=== PATIENT | female | born 1995 | race Caucasian/White ===

== ENCOUNTER → 2025-01-14 | Outpatient (CLI) | payer OTHER ==
--- NOTE | 2025-01-15 11:07 | CA ---
Transthoracic Echo Report Name: Sanjuanita Meehan Age: 29 Gender: F : 1995 Exam Date: 01/14/2025 14:12 Exam Location: [place] [facility] Ht (in): 61 Wt (lb): 140 Ordering Physician: Vinita Martinez MD Attending/Referring Phys: Teressa Yap [facility] International [employer] Manager Medina Ng RDCS Procedure CPT: Indications: R07.1 CHEST PAIN R00.2 PALPITATIONS Cardiac Hx: Technical Quality: Good Contrast 1: Total Dose (mL): Contrast 2: Total Dose (mL): MEASUREMENTS (Male / Female) Normal Values 2D ECHO LV Diastolic Diameter PLAX 3.9 cm 4.2 - 5.9 / 3.9 - 5.3 cm LV Systolic Diameter PLAX 2.6 cm IVS Diastolic Thickness 0.8 cm 0.6 - 1.0 / 0.6 - 0.9 cm LVPW Diastolic Thickness 1.0 cm 0.6 - 1.0 / 0.6 - 0.9 cm LV Relative Wall Thickness 0.5 LVOT Diameter 2.2 cm LV Diastolic Volume MOD BP 101.6 cm??? 67 - 155 / 56 - 104 cm??? LV Systolic Volume MOD BP 37.5 cm??? 22 - 58 / 19 - 49 cm??? LV Ejection Fraction MOD BP 63.1 % >= 55 % LV Cardiac Index MOD BP 2765.7 cm???/min???m??? LV Diastolic Volume MOD 4C 102.7 cm??? LV Systolic Volume MOD 4C 37.0 cm??? LV Ejection Fraction MOD 4C 64.0 % LV Cardiac Index MOD 4C 2831.1 cm???/min???m??? LV Diastolic Length 4C 8.4 cm LV Systolic Length 4C 6.8 cm LV Diastolic Volume MOD 2C 94.7 cm??? LV Systolic Volume MOD 2C 36.2 cm??? LV Ejection Fraction MOD 2C 61.7 % LV Cardiac Index MOD 2C 2520.1 cm???/min???m??? LV Diastolic Length 2C 7.9 cm LV Systolic Length 2C 6.5 cm LA Volume 37.4 cm??? 18 - 58 / 22 - 52 cm??? LA Volume Index 22.4 cm???/m??? 16 - 28 cm???/m??? DOPPLER AV Peak Velocity 58.7 cm/s AV Peak Gradient 1.4 mmHg AV Mean Velocity 40.5 cm/s AV Mean Gradient 1.5 mmHg AV Velocity Time Integral 11.6 cm LVOT Peak Velocity 91.8 cm/s LVOT Peak Gradient 3.4 mmHg LVOT Velocity Time Integral 18.7 cm LVOT Stroke Volume 70.0 cm??? LVOT Stroke Volume Index 43.1 ml/m??? LVOT Cardiac Index 3016.5 cm???/min???m??? AV Area Cont Eq vti 6.1 cm??? AV Area Cont Eq pk 5.9 cm??? MV Area PHT 2.3 cm??? Mitral E Point Velocity 54.3 cm/s Mitral A Point Velocity 24.5 cm/s Mitral E to A Ratio 2.2 MV Deceleration Time 327.0 ms TR Peak Velocity 219.8 cm/s TR Peak Gradient 19.3 mmHg Right Atrial Pressure 5.0 mmHg Pulmonary Artery Systolic Pressu 24.3 mmHg Right Ventricular Systolic Press 24.3 mmHg PV Peak Velocity 82.9 cm/s PV Peak Gradient 2.8 mmHg FINDINGS Left Ventricle Left ventricular ejection fraction is estimated at 55-60 %. Left ventricular cavity size normal. Left ventricular wall thickness normal. No obvious regional wall motion abnormalities. Right Ventricle Normal right ventricular size and function. Right ventricular systolic pressure within normal limits. Right Atrium Normal right atrial size. Left Atrium Normal left atrial size. Mitral Valve Structurally normal mitral valve. No mitral stenosis, regurgitation or prolapse. Aortic Valve Trileaflet aortic valve. No aortic valve stenosis or regurgitation. Tricuspid Valve Structurally normal tricuspid valve. No tricuspid stenosis. Trace tricuspid regurgitation. Pulmonic Valve Structurally normal pulmonic valve. No pulmonic stenosis. No pulmonic regurgitation. Pericardium No pericardial effusion. Aorta Normal size aortic root and proximal ascending aorta. CONCLUSIONS LVEF 55% No obvious regional wall motion abnormality Normal LV cavity size wall thickness and systolic function No significant chamber size abnormality No significant valvular dysfunction Previewed by: Dr Femi Holder (Electronically Signed) Final Date: 15 January 2025 11:06
== END | disposition home or self-care (01) ==
LOC: RADECHMAIN 14:11
PROVIDERS: ATTEND Family Medicine
DX: R00.2 Palpitations (principal); I07.1 Rheumatic tricuspid insufficiency
CPT/HCPCS: 93306